=== PATIENT | female | born 1965 | race Caucasian/White ===

== ENCOUNTER 2023-11-01 16:52 | Emergency (ER) | payer BC, SELFPAY ==
[2023-11-01 16:56] VITALS: BP 158/100; BMI 23.5
--- NOTE | 2023-11-01 19:41 | ED.MUSCINJ ---
HPI-Injury
General
Chief Complaint: Extremity Pain (non-traumatic)
Source: patient
Exam Limitations: none
Time Seen by Provider: 11/01/23 18:52
Travel History
Have you had any contact with someone who has COVID-19?: No
Do you have any symptoms of coronavirus? Fever > 100 degrees, chills, cough, shortness of breath, sore throat, loss of taste or smell, muscle aches, or headache?: No
History of Present Illness-Injury
Is this injury a work related problem?: Yes
Is pt an associate of [facility]?: No
Initial Injury comments:
This is a 58 year old female that comes in with c/o laceration to the left third finger. States that she was working with a filling cabinet and it was high. States that the cabinet started to tip and she still had her finger in the draw. States
that she tried to stop it from falling and her finger got caught. States that her third finger has a laceration and states that it is just slightly hanging on. Unknown when last Tetanus. Denies any fever, chills, nausea, diarrhea headache,
dizziness.
Past History
Past History
ED Past Medical History: HTN and Psychiatric (Anxiety)
ED Past Surgical History: Orthopedic (Bilateral carpal tunnel)
Social History
Tobacco: Non-smoker
Alcohol: Daily (Daily Beer 3)
Personal:
Living: with family
Employment: Employed
Review of Systems
Review of Systems
All Other Systems: ROS reviewed and negative except as documented in HPI and ROS
Constitutional: Reports no symptoms; Denies fever or chills
EENT: Reports no symptoms
Respiratory: Reports no symptoms
Cardiac: Reports no symptoms
ABD/GI: Reports no symptoms
: Reports no symptoms
Skin: Reports other (Laceration left third finger. )
Neurological: Reports no symptoms; Denies dizzy or headache
Psychiatric: Reports no symptoms
Musculoskeletal Injury Exam
Musculoskeletal Injury Exam
Left Third Finger:
Pain with Movement?: Moderate
Tender to palpation?: Moderate
Soft tissue swelling?: Mild
External deformity and angulation?: Mild
Joint effusion?: None
Contusion?: None
Hematoma-local bleeding into tissue?: None
Strain- Sprain- Tear (Connective tissue injury)?: None
Crepitus with movement?: No
Joint instability?: No
Malalignment/deformity?: No
Distal skin color and temperature: normal-warm & good color
Normal distal neurovascular exam?: Yes
Phy Exam
General Physical Exam
General Presentation: well appearing and no apparent distress
General age: appears stated age
General Skin: warm and dry
General Habitus: normal
General Mental: alert
General Hydration: appears well hydrated
Musculoskeletal Exam
Musculoskeletal Exam: other ( open Fracture of the left third finger with c shaped laceration and nail involvement. )
Skin Exam
Skin Exam: normal color, warm/dry, no petechia and laceration (Left third finger C shaped with nail involvment. )
Psychiatric Exam
Psychiatric Exam: normal mood/affect
Injury Course
Orders/Labs/Results
Orders:
Orders
11/01/23 17:00
Hand, Left 3 View [CR Hand - Left Min 3 Views] Urgent
Comment:
Reason For Exam: 3rd digit, distal amputation
Procedures
Laceration Closure
Left Third Finger:
Status of Wound: clean
Size of Wound in cm: 4
Description of Wound Edges: sharp
Preparation: cleaned with saline
Anesthesia: 1% Lidocaine
Revision/Debridement: routine- no revision
Wound exploration: explored to base- no FB
Type of Closure: single layer closure
Skin Closure Material: 3-0 nylon
Number of sutures: 7
MDM/Problems Addressed
Differential Diagnosis Includes:
Laceration. Finer fracture
MDM/Problems Addressed:
This is a 58 year old female that comes in with c/o left third finger laceration. States that she got her finger caught in a filling cabinet when it started to fall it caught her finger.
Explained to patient that there is a fracture along with the Laceration. Patient will need to see Dr. Garcia. He will call her and get her into his office [place].
Chronic conditions affecting care:
NA
Acute Exacerbation and/or Progression of Chronic Illness:
NA
*Pulse Oximetry
Patient hypoxic: no
*EKG
Interpreted by ED Provider?: NA
Rate: EKG- N/A
*Fuel Pilot Engineer Interpretation
Rate: Fuel Pilot Engineer- N/A
*Critical Care Note
Total Time (30-74mins, 75-104mins- exclusive of procedures): Not Applicable
ED Attending Note
-
Portions of this chart may have been created with voice recognition software.� Occasional wrong word or��sound alike� substitutions may have occurred due to the inherent limitations of voice recognition software.
Discharge Plan
Departure
Patient Disposition: Home (Routine Discharge)
Date of Disposition: 11/01/23
Time of Disposition: 19:54
Patient with high blood pressure during this ER visit?: Yes
Condition: Good
Covid-19: Not Applicable
Discharge Problem:
Laceration of finger of left hand with damage to nail, Fracture of finger of left hand
Instructions: Laceration Repair With Stitches (DC), Finger Fracture (DC), BLOOD PRESSURE
Prescriptions:
New
cephalexin 500 mg capsule
500 mg PO BID 10 Days Qty: 20 0RF
No Action
fluoxetine 10 mg Tablet
10 mg PO DAILY
lisinopril 5 mg Tablet
5 mg PO DAILY
Referrals:
Jim Garcia MD [Active] - Tomorrow
Mathis,Davy, DO [Family Provider] -
Activity Restrictions/Additional Instructions:
As discussed, you finger has been suture and you will need to follow up with the labeling specialist. They will call you tomorrow and if they do not call please call them. You also have fracture of the distal finger. YOu have been given your
first dose of antibiotic here and a prescription for the next 10 days. Please keep this dry and bandaged until you see Dr. Garcia. IF YOU HAVE ANY OTHER CONCERNS PLEASE RETURN TO THE EMERGECY ROOM
Interventions
Interventions:
*Risk Screen - Suicide Last Done: 11/01/23 16:56
*General Assessment Last Done: 11/01/23 19:39
*Neglect/Abuse Screening Last Done: 11/01/23 16:56
ED- Fall Risk Assessment Last Done: 11/01/23 19:39
*ED COVID-19 Vaccine History Last Done: 11/01/23 16:56
ED-Skin Assessment Last Done: 11/01/23 19:38
ED-Peripheral Vascular Assessment Last Done: 11/01/23 19:39
ED-Musculoskeletal Assessment Last Done: 11/01/23 19:38
[2023-11-01] MEDS: KEFLEX 500 MG PO (20:02)
[2023-11-01] MEDS: ADACEL 0.5 ML IM (20:03)
[2023-11-01 20:26] VITALS: BP 145/72
== END 2023-11-01 20:27 | disposition home or self-care (01) ==
LOC: EMR 16:52
PROVIDERS: EMERGENCY PHYSICIAN Emergency Medicine; FAMILY PHYSICIAN Family Medicine
DX: S62.633A Displaced fracture of distal phalanx of left middle finger, initial encounter for closed fracture (principal); S61.313A Laceration without foreign body of left middle finger with damage to nail, initial encounter; W23.0XXA Caught, crushed, jammed, or pinched between moving objects, initial encounter; I10 Essential (primary) hypertension; F41.9 Anxiety disorder, unspecified
CPT/HCPCS: 99283; 12002; 90471; 29130; 73130; 90715